=== PATIENT | male | born 1955 | race Caucasian/White ===

== ENCOUNTER 2018-08-14 07:16 | Emergency (ER) | payer MEDICARE, OTHER ==
[~2018-08-14] VITALS: Ht 182.9 cm; Wt 91.0 kg
[2018-08-14] MEDS ORDERED: ALBUTEROL (0.083%) 2.5MG/3ML NEB HHN STA (07:55)
[2018-08-14] MEDS ORDERED: IPRATROPIUM BROMIDE (0.02%) 0.5MG/2.5ML NEB HHN STA (07:55)
[2018-08-14] MEDS ORDERED: PREDNISONE 20MG TABLET PO STA (07:55)
[2018-08-14 11:24] VITALS: BP 127/67
== END 2018-08-14 11:31 | disposition home or self-care (01) ==
LOC: ER 07:16
DX: J44.1 Chronic obstructive pulmonary disease with (acute) exacerbation (principal); F15.10 Other stimulant abuse, uncomplicated; I10 Essential (primary) hypertension; F31.9 Bipolar disorder, unspecified
CPT/HCPCS: 71045; 94640; 99283; J7512; J7611